=== PATIENT | female | born 1990 | race Caucasian/White ===

== ENCOUNTER 2019-05-06 09:47 | Emergency (ER) | payer SELFPAY ==
[~2019-05-06] VITALS: Ht 170.2 cm; Wt 57.2 kg
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
--- NOTE | 2019-05-06 10:24 | NUR ---
URINE COLLECTED AND SENT TO LAB
[2019-05-06] MEDS ORDERED: KETOROLAC TROMETHAMINE INJ 30 MG/ML VIAL ONE (10:54)
[2019-05-06] MEDS ORDERED: ACETAMINOPHEN 325 MG TABLET ONE (10:54)
[2019-05-06] MEDS ORDERED: CYCLOBENZAPRINE 10 MG TABLET ONE (10:54)
[2019-05-06] MEDS ORDERED: KETOROLAC TROMETHAMINE INJ 30 MG/ML VIAL IM ONE (11:00)
[2019-05-06] MEDS ORDERED: CYCLOBENZAPRINE 10 MG TABLET PO ONE (11:00)
[2019-05-06] MEDS ORDERED: ACETAMINOPHEN 325 MG TABLET PO ONE (11:00)
[2019-05-06] MEDS ORDERED: HYDROCODONE/APAP 5/325MG 1 EACH TABLET PO ONE (12:00)
[2019-05-06] MEDS ORDERED: HYDROCODONE/APAP 5/325MG 1 EACH TABLET ONE (12:00)
[2019-05-06 12:27] VITALS: BP 104/58
--- NOTE | 2019-05-06 12:28 | NUR ---
Patient discharged to home in stable condition. Written and verbal after care instructions given. Patient verbalizes understanding of instruction.
== END 2019-05-06 12:28 | disposition home or self-care (01) ==
LOC: ER 09:52
DX: S16.1XXA Strain of muscle, fascia and tendon at neck level, initial encounter (principal); R51 Headache; Z60.2 Problems related to living alone; V49.49XA Driver injured in collision with other motor vehicles in traffic accident, initial encounter; Y93.89 Activity, other specified; Y92.488 Other paved roadways as the place of occurrence of the external cause; Y99.8 Other external cause status
CPT/HCPCS: 84703; 96372; 99284; J1885